=== PATIENT | female | born 1955 | race Caucasian/White ===

== ENCOUNTER 2018-03-13 21:59 | Inpatient (IN) | payer SELFPAY ==
[~2018-03-13] VITALS: Ht 165.1 cm; Wt 48.3 kg
[2018-03-13] MEDS ORDERED: LORazepam 2MG/ML-1ML VIAL ONE (22:21)
[2018-03-13] MEDS ORDERED: LEVETIRACETAM 500 MG/5ML INJ IV ONE (22:22)
[2018-03-13 22:50] LABS: Basophils # (auto) 0.1 uL; Basophils % (auto) 0.4 % (0.0-2.0); Eosinophils # (auto) 0.1 uL; Eosinophils % (auto) 0.3 % (0.0-7.0); Hematocrit 38.9 % (36.0-46.0); Hemoglobin 13.1 g/dL (12.2-16.2); Lymphocytes % (auto) 11.6 % (10.0-50.0); Mean Corpuscular Hgb Conc. 33.7 g/dL (32.0-36.0); Mean Corpuscular Volume 94.8 fL (80.0-100.0); Monocytes # (auto) 0.9 uL; Monocytes % (auto) 5.2 % (0.0-12.0); Neutrophils # (auto) 14.5 uL; Neutrophils % (auto) 82.5 % (37.0-80.0); Platelet Count (auto) 267 10^3/uL (140-450); Red Cell Distribution Width 13.4 % (11.8-14.3); White Blood Cell 17.6 10^3/uL (4.4-10.8)
[2018-03-13] MEDS ORDERED: LEVETIRACETAM INJ 1,000 MG in D5W 5% 100 ML IV ONE (23:00)
[2018-03-13] MEDS ORDERED: LORazepam 2MG/ML-1ML VIAL IV ONE (23:00)
[2018-03-13 23:07] LABS: Albumin 3.7 g/dL (3.4-5.0); Anion Gap 12 (5-15); Blood Urea Nitrogen 5 mg/dL (7-18); Calcium 7.9 mg/dL (8.5-10.1); Carbon Dioxide 21 mmol/L (21-32); Chloride 81 mmol/L (98-107); Glucose 179 mg/dL (74-106); Potassium 4.1 mmol/L (3.5-5.1)
[2018-03-13 23:08] LABS: Acetaminophen < 2.0 ug/mL (10-30)
[2018-03-13 23:10] LABS: INR 0.97 (0.9-1.15); Partial Thromboplastin Time 25.8 sec (23.78-33.04); Prothrombin Time 10.4 sec (9.27-12.13)
[2018-03-13 23:13] LABS: Alanine Aminotransferase 23 U/L (13-56); Alkaline Phosphatase 75 U/L (45-117); Aspartate Aminotransferase 21 U/L (15-37); Bilirubin, Total 0.8 mg/dL (0.2-1.0); GFR African American 112 mL/min; GFR Non-African American 93 mL/min; Total Protein 6.4 g/dL (6.4-8.2)
[2018-03-13 23:22] LABS: Sodium 114 mmol/L (136-145)
[2018-03-13 23:29] LABS: BUN/Creatinine Ratio 7.4
[2018-03-13] MEDS ORDERED: SODIUM CHL 3% 500 ML IV ONE (23:30)
[2018-03-13] MEDS ORDERED: SODIUM CHLORIDE 0.9% 1,000 ML IV ONE (23:30)
[2018-03-14 00:52] LABS: Lactic Acid w/Reflex 3.3 mmol/L (0.4-2.0)
[2018-03-14] MEDS ORDERED: ACETAMINOPHEN 500 MG TAB PO PRN (02:00)
[2018-03-14] MEDS ORDERED: LORazepam 2MG/ML-1ML VIAL IV PRN (02:00)
[2018-03-14] MEDS ORDERED: ONDANSETRON HCL 4 MG/2 ML VIAL IV PRN (02:00)
[2018-03-14 02:29] LABS: Albumin 3.3 g/dL (3.4-5.0); BUN/Creatinine Ratio 10.4; Bilirubin, Total 0.7 mg/dL (0.2-1.0); Calcium 7.5 mg/dL (8.5-10.1); Potassium 3.9 mmol/L (3.5-5.1); Total Protein 5.9 g/dL (6.4-8.2)
[2018-03-14 02:52] LABS: Alcohol, Urine < 3.0 mg/dL (0-5); Amphetamine Screen, Urine NEGATIVE (NEGATIVE); Barbiturate Scree,Urine NEGATIVE (NEGATIVE); Benzodiazephine Screen, Urine NEGATIVE (NEGATIVE); Cannabinoid Screen, Urine NEGATIVE (NEGATIVE); Cocaine Screen, Urine NEGATIVE (NEGATIVE); Opiate Scree,Urine NEGATIVE (NEGATIVE); Phencyclidine Screen, Urine NEGATIVE (NEGATIVE)
[2018-03-14 02:55] LABS: Urine Bacteria NONE SEEN /hpf (None Seen); Urine Blood TRACE /uL (Negative); Urine Specific Gravity 1.007 (1.001-1.035); Urine WBC <1 /hpf (0 - 5)
[2018-03-14] MEDS ORDERED: VANCOMYCIN PER PHARMACY 0 MG IV SCH (03:30)
[2018-03-14] MEDS ORDERED: VANCOMYCIN 1GM/250ML 250 ML IV ONE (04:00)
[2018-03-14] MEDS ORDERED: ALBUTEROL SULF 2.5 MG/0.5ML(0.5%) NEB SOLN NEB ONE (04:30)
[2018-03-14] MEDS ORDERED: IPRATROPIUM BROM 0.5 MG/2.5ML INH SOL NEB ONE (04:30)
[2018-03-14 05:31] LABS: Basophils # (auto) 0 uL; Basophils % (auto) 0.2 % (0.0-2.0); Eosinophils # (auto) 0 uL; Eosinophils % (auto) 0.2 % (0.0-7.0); Hematocrit 37.3 % (36.0-46.0); Hemoglobin 12.7 g/dL (12.2-16.2); Lymphocytes # (auto) 1.6 uL; Lymphocytes % (auto) 10.3 % (10.0-50.0); Mean Corpuscular Hemoglobin 31.8 pg (28.0-32.0); Mean Corpuscular Hgb Conc. 33.9 g/dL (32.0-36.0); Mean Corpuscular Volume 93.8 fL (80.0-100.0); Monocytes # (auto) 1.1 uL; Monocytes % (auto) 7.4 % (0.0-12.0); Neutrophils # (auto) 12.4 uL; Neutrophils % (auto) 81.9 % (37.0-80.0); Platelet Count (auto) 233 10^3/uL (140-450); Red Blood Cells 3.98 10^6/uL (4.0-5.20); Red Cell Distribution Width 13.4 % (11.8-14.3); White Blood Cell 15.1 10^3/uL (4.4-10.8)
[2018-03-14 05:49] LABS: BUN/Creatinine Ratio 8.5; Calcium 7.9 mg/dL (8.5-10.1); Potassium 3.6 mmol/L (3.5-5.1)
[2018-03-14] MEDS: cefTRIAXone 1GM/50ML D5W 50 ML IV SCH (07:10)
[2018-03-14] MEDS: SODIUM CHLORIDE 0.9% 1,000 ML IV SCH ×2 (07:10→13:15)
[2018-03-14] MEDS: LEVETIRACETAM INJ 500 MG in D5W 5% 100 ML IV SCH ×2 (10:30→21:56)
[2018-03-14] MEDS ORDERED: LORazepam 2MG/ML-1ML VIAL ONE (11:25)
[2018-03-14] MEDS ORDERED: ACETAMINOPHEN 325 MG RECT SUPP PR ONE (11:26)
[2018-03-14] MEDS ORDERED: LORazepam 2MG/ML-1ML VIAL IV ONE (11:30)
[2018-03-14] MEDS ORDERED: ACETAMINOPHEN 650 MG RECT SUPP PR ONE (11:30)
[2018-03-14 15:30] VITALS: BP 124/66
[2018-03-14 15:56] VITALS: BP 125/87
[2018-03-14 18:13] LABS: BUN/Creatinine Ratio 5.4; Calcium 7.9 mg/dL (8.5-10.1); Potassium 3.2 mmol/L (3.5-5.1)
[2018-03-14] MEDS ORDERED: SOD CHL IV SCH (18:15)
[2018-03-14] MEDS ORDERED: D5 IV SCH (18:15)
[2018-03-14 19:57] VITALS: BP 144/79
[2018-03-14] MEDS: POTASSIUM CHL 20MEQ/100ML 100 ML IV SCH (22:09)
[2018-03-14] MEDS: VANCOMYCIN 750 MG in D5W 5% 250 ML IV SCH (23:00)
[2018-03-15] VITALS: BP 147/88
[2018-03-15] MEDS: POTASSIUM CHL 20MEQ/100ML 100 ML IV SCH (00:08)
[2018-03-15] MEDS ORDERED: TRAZ-181 PO (03:29)
[2018-03-15] MEDS: cefTRIAXone 1GM/50ML D5W 50 ML IV SCH (04:30)
[2018-03-15 04:41] VITALS: BP 127/51
[2018-03-15 05:05] LABS: Basophils # (auto) 0.1 uL; Basophils % (auto) 0.9 % (0.0-2.0); Eosinophils # (auto) 0.1 uL; Eosinophils % (auto) 0.8 % (0.0-7.0); Hemoglobin 11.8 g/dL (12.2-16.2); Lymphocytes # (auto) 2.4 uL; Lymphocytes % (auto) 24.1 % (10.0-50.0); Mean Corpuscular Hemoglobin 31.9 pg (28.0-32.0); Mean Corpuscular Hgb Conc. 33.6 g/dL (32.0-36.0); Mean Corpuscular Volume 94.9 fL (80.0-100.0); Monocytes # (auto) 0.8 uL; Monocytes % (auto) 7.8 % (0.0-12.0); Neutrophils # (auto) 6.6 uL; Neutrophils % (auto) 66.4 % (37.0-80.0); Platelet Count (auto) 222 10^3/uL (140-450); Red Blood Cells 3.69 10^6/uL (4.0-5.20); Red Cell Distribution Width 14.1 % (11.8-14.3); White Blood Cell 9.9 10^3/uL (4.4-10.8)
[2018-03-15 05:34] LABS: BUN/Creatinine Ratio 8.3; Calcium 7.6 mg/dL (8.5-10.1); Potassium 3.7 mmol/L (3.5-5.1)
[2018-03-15 08:00] VITALS: BP 127/70
[2018-03-15] MEDS: LEVETIRACETAM INJ 500 MG in D5W 5% 100 ML IV SCH ×2 (09:31→21:55)
[2018-03-15] MEDS: NICOTINE 21MG/24 HR TOPICAL PATCH TD SCH (09:44)
[2018-03-15] MEDS ORDERED: D5W 5% 1,000 ML IV ONE ×2 (11:00→12:00)
[2018-03-15 11:48] VITALS: BP 101/56
[2018-03-15 15:23] LABS: Potassium 3.7 mmol/L (3.5-5.1)
[2018-03-15 15:26] LABS: BUN/Creatinine Ratio 7.6; Bilirubin, Total 0.3 mg/dL (0.2-1.0); Total Protein 5.7 g/dL (6.4-8.2)
[2018-03-15 16:00] VITALS: BP 117/77
[2018-03-15] MEDS: VANCOMYCIN 750 MG in D5W 5% 250 ML IV SCH (17:42)
[2018-03-15 18:12] LABS: BUN/Creatinine Ratio 8.5; Potassium 3.7 mmol/L (3.5-5.1)
[2018-03-15 19:49] VITALS: BP 108/69
[2018-03-16] VITALS: BP 123/81
[2018-03-16 04:00] VITALS: BP 115/67
[2018-03-16 05:02] LABS: Basophils # (auto) 0.1 uL; Basophils % (auto) 0.5 % (0.0-2.0); Eosinophils # (auto) 0.2 uL; Eosinophils % (auto) 2.1 % (0.0-7.0); Hematocrit 39.3 % (36.0-46.0); Hemoglobin 13.1 g/dL (12.2-16.2); Lymphocytes # (auto) 2.1 uL; Lymphocytes % (auto) 20.4 % (10.0-50.0); Mean Corpuscular Hemoglobin 31.7 pg (28.0-32.0); Mean Corpuscular Hgb Conc. 33.3 g/dL (32.0-36.0); Mean Corpuscular Volume 95.2 fL (80.0-100.0); Monocytes # (auto) 0.7 uL; Monocytes % (auto) 7.2 % (0.0-12.0); Neutrophils # (auto) 7.2 uL; Neutrophils % (auto) 69.8 % (37.0-80.0); Platelet Count (auto) 243 10^3/uL (140-450); Red Blood Cells 4.12 10^6/uL (4.0-5.20); Red Cell Distribution Width 14.1 % (11.8-14.3); White Blood Cell 10.3 10^3/uL (4.4-10.8)
[2018-03-16 05:25] LABS: BUN/Creatinine Ratio 7.7; Calcium 8.2 mg/dL (8.5-10.1); Phosphorus 3.1 mg/dL (2.5-4.90); Potassium 3.8 mmol/L (3.5-5.1)
[2018-03-16 08:00] VITALS: BP 134/83
[2018-03-16] MEDS: cefTRIAXone 1GM/50ML D5W 50 ML IV SCH (08:57)
[2018-03-16] MEDS: NICOTINE 21MG/24 HR TOPICAL PATCH TD SCH (10:14)
[2018-03-16] MEDS: LEVETIRACETAM INJ 500 MG in D5W 5% 100 ML IV SCH (10:14)
[2018-03-16] MEDS: VANCOMYCIN 750 MG in D5W 5% 250 ML IV SCH ×2 (11:41→22:35)
[2018-03-16 12:00] VITALS: BP 131/70
[2018-03-16] MEDS ORDERED: SODIUM CHLORIDE 0.9% 3,000 ML IV ONE (12:30)
[2018-03-16] MEDS: FUROSEMIDE 40 MG/4 ML VIAL IV SCH ×3 (15:09→21:16)
[2018-03-16 15:59] VITALS: BP 132/89
[2018-03-16 20:00] VITALS: BP 125/70
[2018-03-16] MEDS: LEVETIRACETAM 500 MG TAB PO SCH (21:16)
[2018-03-16] MEDS ORDERED: diphenhdrAMINE HCL 50 MG/1 ML VL ONE (21:46)
[2018-03-16] MEDS ORDERED: diphenhdrAMINE HCL 50 MG/1 ML VL IV SCH (22:30)
[2018-03-17] VITALS (7 sets, daily range): BP systolic 106–123; BP diastolic 63–90
[2018-03-17] MEDS: cefTRIAXone 1GM/50ML D5W 50 ML IV SCH (05:15)
[2018-03-17 05:21] LABS: Basophils # (auto) 0.1 uL; Eosinophils # (auto) 0.3 uL; Eosinophils % (auto) 2.7 % (0.0-7.0); Hematocrit 44.3 % (36.0-46.0); Lymphocytes # (auto) 2.1 uL; Lymphocytes % (auto) 19.2 % (10.0-50.0); Mean Corpuscular Hemoglobin 32.1 pg (28.0-32.0); Mean Corpuscular Hgb Conc. 33.8 g/dL (32.0-36.0); Mean Corpuscular Volume 94.9 fL (80.0-100.0); Monocytes # (auto) 0.8 uL; Monocytes % (auto) 7.2 % (0.0-12.0); Neutrophils # (auto) 7.7 uL; Neutrophils % (auto) 69.9 % (37.0-80.0); Nucleated Red Blood Cells % 0.1 %; Platelet Count (auto) 285 10^3/uL (140-450); Red Blood Cells 4.67 10^6/uL (4.0-5.20); Red Cell Distribution Width 14.2 % (11.8-14.3)
[2018-03-17 05:41] LABS: Albumin 3.5 g/dL (3.4-5.0); Calcium 9.1 mg/dL (8.5-10.1); Potassium 3.5 mmol/L (3.5-5.1)
[2018-03-17 05:45] LABS: BUN/Creatinine Ratio 14.7; Bilirubin, Total 0.4 mg/dL (0.2-1.0)
[2018-03-17] MEDS: LEVETIRACETAM 500 MG TAB PO SCH ×2 (09:56→21:54)
[2018-03-17] MEDS: NICOTINE 21MG/24 HR TOPICAL PATCH TD SCH (10:00)
[2018-03-17] MEDS ORDERED: LORazepam 2MG/ML-1ML VIAL IV PRN (11:15)
[2018-03-17] MEDS ORDERED: THIAMINE 100mg/ml INJ (200mg/2ml VIAL) IM ONE (11:15)
[2018-03-17 11:24] LABS: Cholesterol 189 mg/dL (< 200); Triglycerides 124 mg/dL (< 150)
[2018-03-17 11:26] LABS: HDL Cholesterol 59 mg/dL (40-59); LDL Cholesterol 115 mg/dL (< 100)
[2018-03-17] MEDS: VANCOMYCIN 750 MG in D5W 5% 250 ML IV SCH ×2 (11:34→22:37)
[2018-03-17] MEDS: SODIUM CHLORIDE 0.9% 1,000 ML IV SCH ×2 (17:08→22:55)
[2018-03-17] MEDS ORDERED: diphenhdrAMINE HCL 50 MG/1 ML VL IV ONE (21:00)
[2018-03-17] MEDS: ATORVASTATIN 20 MG TAB PO SCH (21:54)
[2018-03-18 05:00] VITALS: BP 144/87
[2018-03-18] MEDS: cefTRIAXone 1GM/50ML D5W 50 ML IV SCH (05:33)
[2018-03-18 06:34] LABS: Basophils # (auto) 0.1 uL; Basophils % (auto) 0.8 % (0.0-2.0); Eosinophils # (auto) 0.3 uL; Eosinophils % (auto) 3.3 % (0.0-7.0); Lymphocytes # (auto) 1.3 uL; Lymphocytes % (auto) 13.8 % (10.0-50.0); Mean Corpuscular Hemoglobin 31.7 pg (28.0-32.0); Mean Corpuscular Hgb Conc. 33.3 g/dL (32.0-36.0); Mean Corpuscular Volume 95.3 fL (80.0-100.0); Monocytes # (auto) 0.7 uL; Monocytes % (auto) 6.8 % (0.0-12.0); Neutrophils # (auto) 7.2 uL; Neutrophils % (auto) 75.3 % (37.0-80.0); Nucleated Red Blood Cells % 0.1 %; Platelet Count (auto) 260 10^3/uL (140-450); Red Blood Cells 4.09 10^6/uL (4.0-5.20); Red Cell Distribution Width 13.9 % (11.8-14.3); White Blood Cell 9.6 10^3/uL (4.4-10.8)
[2018-03-18] MEDS: SODIUM CHLORIDE 0.9% 1,000 ML IV SCH ×3 (06:35→18:55)
[2018-03-18 06:50] LABS: BUN/Creatinine Ratio 21.8; Calcium 8.6 mg/dL (8.5-10.1); Potassium 3.7 mmol/L (3.5-5.1)
[2018-03-18 08:39] VITALS: BP 134/74
[2018-03-18] MEDS: ASPirin-EC 81 mg tab PO SCH (09:44)
[2018-03-18] MEDS: THIAMINE HCL 100 MG TAB PO SCH (09:45)
[2018-03-18] MEDS: LEVETIRACETAM 500 MG TAB PO SCH ×2 (09:45→22:00)
[2018-03-18] MEDS: NICOTINE 21MG/24 HR TOPICAL PATCH TD SCH (09:46)
[2018-03-18] MEDS: VANCOMYCIN 750 MG in D5W 5% 250 ML IV SCH (11:00)
[2018-03-18 13:00] VITALS: BP 128/62
[2018-03-18 17:00] VITALS: BP 105/70
[2018-03-18] MEDS: ATORVASTATIN 20 MG TAB PO SCH (21:58)
[2018-03-18 22:57] VITALS: BP 117/76
[2018-03-19] MEDS: SODIUM CHLORIDE 0.9% 1,000 ML IV SCH ×2 (01:35→08:15)
[2018-03-19 04:53] VITALS: BP 117/69
[2018-03-19] MEDS: cefTRIAXone 1GM/50ML D5W 50 ML IV SCH (05:19)
[2018-03-19 07:32] LABS: Basophils # (auto) 0.1 uL; Basophils % (auto) 1.2 % (0.0-2.0); Eosinophils # (auto) 0.3 uL; Eosinophils % (auto) 3.9 % (0.0-7.0); Hematocrit 37.9 % (36.0-46.0); Hemoglobin 12.8 g/dL (12.2-16.2); Lymphocytes # (auto) 1.3 uL; Lymphocytes % (auto) 16.7 % (10.0-50.0); Mean Corpuscular Hemoglobin 32.2 pg (28.0-32.0); Mean Corpuscular Hgb Conc. 33.7 g/dL (32.0-36.0); Mean Corpuscular Volume 95.3 fL (80.0-100.0); Monocytes # (auto) 0.5 uL; Monocytes % (auto) 6.6 % (0.0-12.0); Neutrophils # (auto) 5.5 uL; Neutrophils % (auto) 71.6 % (37.0-80.0); Platelet Count (auto) 268 10^3/uL (140-450); Red Blood Cells 3.98 10^6/uL (4.0-5.20); Red Cell Distribution Width 14.1 % (11.8-14.3); White Blood Cell 7.6 10^3/uL (4.4-10.8)
[2018-03-19 07:42] LABS: BUN/Creatinine Ratio 14.5; Calcium 8.7 mg/dL (8.5-10.1); Phosphorus 3.5 mg/dL (2.5-4.90); Potassium 4.3 mmol/L (3.5-5.1)
[2018-03-19 09:00] VITALS: BP 124/75
[2018-03-19] MEDS: NICOTINE 21MG/24 HR TOPICAL PATCH TD SCH (09:22)
[2018-03-19] MEDS: THIAMINE HCL 100 MG TAB PO SCH (09:22)
[2018-03-19] MEDS: ASPirin-EC 81 mg tab PO SCH (09:22)
[2018-03-19] MEDS: LEVETIRACETAM 500 MG TAB PO SCH (10:00)
[2018-03-19 12:38] VITALS: BP 139/87
[2018-03-19 12:40] VITALS: BP 139/87
== END 2018-03-19 14:20 | disposition home or self-care (01) | DRG 101 ==
LOC: ER 21:59 → OVERFLOW 03-14 02:05 → DOU IN ICU 03-14 15:21 → WEST WING 03-17 12:59
PROVIDERS: ADMIT Nurse Practitioner Family; ATTEND Family Medicine
DX: G40.909 Epilepsy, unspecified, not intractable, without status epilepticus (principal); E87.0 Hyperosmolality and hypernatremia; M62.82 Rhabdomyolysis; R65.10 Systemic inflammatory response syndrome (SIRS) of non-infectious origin without acute organ dysfunction; E87.1 Hypo-osmolality and hyponatremia; F17.200 Nicotine dependence, unspecified, uncomplicated; E87.6 Hypokalemia; I95.9 Hypotension, unspecified; R00.0 Tachycardia, unspecified; F32.9 Major depressive disorder, single episode, unspecified; Z82.49 Family history of ischemic heart disease and other diseases of the circulatory system; Z86.73 Personal history of transient ischemic attack (TIA), and cerebral infarction without residual deficits; Z83.3 Family history of diabetes mellitus; Z90.710 Acquired absence of both cervix and uterus; Z88.2 Allergy status to sulfonamides; Z90.49 Acquired absence of other specified parts of digestive tract
CPT/HCPCS: 36415; 70450; 70551; 71045; 80048; 80053; 80061; 80202; 80307; 80320; 80329; 81001; 82533; 82550; 83605; 83880; 83935; 84100; 84295; 84300; 84443; 84484; 85025; 85379; 85610; 85730; 87040; 87081; 87086; 93306; 93886; 94640; 94761; 95819; 96361; 96365; 96367; A6257; G0378; J0696; J3480; J7060

== ENCOUNTER 2020-08-07 15:58 | Inpatient (IN) | payer OTHER ==
[~2020-08-07] VITALS: Ht 160 cm; Wt 40.8 kg
[~2020-08-07 15:58] MED LIST: TRAZ-181 PO
[2020-08-07 17:16] LABS: Urine WBC None Seen /hpf (0 - 5)
[2020-08-07 17:23] LABS: Basophils # (auto) 0.1 10 ^3/uL (0-0.2); Basophils % (auto) 0.2 % (0.0-2.0); Eosinophils # (auto) 0 10 ^3/uL (0-0.8); Hematocrit 39.3 % (36.0-46.0); Hemoglobin 13.7 g/dL (12.2-16.2); Lymphocytes # (auto) 1.3 10 ^3/uL (0.4-5.4); Mean Corpuscular Hemoglobin 32.5 pg (28.0-32.0); Mean Corpuscular Hgb Conc. 34.8 g/dL (32.0-36.0); Mean Corpuscular Volume 93.3 fL (80.0-100.0); Monocytes # (auto) 1.1 10 ^3/uL (0-1.3); Monocytes % (auto) 5.2 % (0.0-12.0); Neutrophils # (auto) 18.7 10 ^3/uL (1.6-8.6); Neutrophils % (auto) 88.6 % (37.0-80.0); Nucleated Red Blood Cells % 0.1 %; Platelet Count (auto) 286 10^3/uL (140-450); Red Blood Cells 4.21 10^6/uL (4.0-5.20); Red Cell Distribution Width 13.9 % (11.8-14.3); White Blood Cell 21.2 10^3/uL (4.4-10.8)
[2020-08-07 17:23] LABS: Urine Bacteria NONE SEEN /hpf (None Seen); Urine Blood Negative /uL (Negative); Urine Specific Gravity 1.001 (1.001-1.035)
[2020-08-07 17:24] LABS: Anion Gap 11 (5-15); Blood Urea Nitrogen 6 mg/dL (7-18); Calcium 8.9 mg/dL (8.5-10.1); Carbon Dioxide 22 mmol/L (21-32); Chloride 91 mmol/L (98-107); Glucose 100 mg/dL (74-106); Magnesium 1.7 mg/dL (1.6-2.6); Sodium 124 mmol/L (136-145)
[2020-08-07 17:30] LABS: Alanine Aminotransferase 50 U/L (13-56); Alkaline Phosphatase 82 U/L (45-117); Aspartate Aminotransferase 58 U/L (15-37); BUN/Creatinine Ratio 11.8; Bilirubin, Total 0.8 mg/dL (0.2-1.0); GFR African American 156 mL/min; GFR Non-African American 129 mL/min
[2020-08-07 17:46] LABS: Alcohol, Urine < 3.0 mg/dL (0-10); Amphetamine Screen, Urine NEGATIVE (NEGATIVE); Barbiturate Scree,Urine NEGATIVE (NEGATIVE); Benzodiazephine Screen, Urine NEGATIVE (NEGATIVE); Cannabinoid Screen, Urine NEGATIVE (NEGATIVE); Cocaine Screen, Urine NEGATIVE (NEGATIVE); Opiate Scree,Urine NEGATIVE (NEGATIVE); Phencyclidine Screen, Urine NEGATIVE (NEGATIVE)
[2020-08-07] MEDS ORDERED: VANCOMYCIN 1GM/250ML 250 ML IV ONE (18:30)
[2020-08-07] MEDS ORDERED: ASPirin 81 mg TAB PO ONE (18:30)
[2020-08-07] MEDS ORDERED: cefTRIAXone 1GM/50ML D5W 50 ML IV ONE (18:30)
[2020-08-07] MEDS ORDERED: ATORVASTATIN 20 MG TAB PO ONE (18:30)
[2020-08-07] MEDS ORDERED: ASPI-543 PO (18:37)
[2020-08-07 19:25] LABS: INR 1.03 (0.9-1.15); Partial Thromboplastin Time 26.2 sec (23.0-31.2)
[2020-08-07 19:30] LABS: Cholesterol 192 mg/dL (< 200); Triglycerides 80 mg/dL (< 150)
[2020-08-07 19:33] LABS: HDL Cholesterol 77 mg/dL (40-59); LDL Cholesterol 97 mg/dL (< 100)
[2020-08-07] MEDS ORDERED: ALBUTEROL SULF 2.5 MG/0.5ML(0.5%) NEB SOLN NEB PRN (21:15)
[2020-08-07] MEDS ORDERED: SODIUM CHLORIDE 0.9% 1,000 ML IV ONE (21:15)
[2020-08-07] MEDS ORDERED: VANCOMYCIN PER PHARMACY 0 MG IV SCH (21:15)
[2020-08-07 22:39] VITALS: BP 129/65
[2020-08-08] MEDS ORDERED: traZODone HCL 50 MG TAB PO ONE (01:00)
[2020-08-08] MEDS: VANCOMYCIN 1GM/250ML 250 ML IV SCH ×2 (06:39→19:00)
[2020-08-08] MEDS ORDERED: LORazepam 2MG/ML-1ML VIAL IV PRN (08:45)
[2020-08-08 09:41] LABS: Albumin 2.6 g/dL (3.4-5.0); BUN/Creatinine Ratio 14.7; Calcium 7.5 mg/dL (8.5-10.1); Potassium 4.2 mmol/L (3.5-5.1)
[2020-08-08 09:50] LABS: Bilirubin, Total 0.4 mg/dL (0.2-1.0); Total Protein 4.9 g/dL (6.4-8.2)
[2020-08-08] MEDS ORDERED: cefTRIAXone 1GM/50ML D5W 50 ML IV SCH (10:00)
[2020-08-08 11:35] LABS: Basophils # (auto) 0 10 ^3/uL (0-0.2); Basophils % (auto) 0.5 % (0.0-2.0); Eosinophils # (auto) 0 10 ^3/uL (0-0.8); Eosinophils % (auto) 0.5 % (0.0-7.0); Hematocrit 34.9 % (36.0-46.0); Hemoglobin 11.7 g/dL (12.2-16.2); Lymphocytes # (auto) 1.9 10 ^3/uL (0.4-5.4); Lymphocytes % (auto) 21.2 % (10.0-50.0); Mean Corpuscular Hgb Conc. 33.5 g/dL (32.0-36.0); Mean Corpuscular Volume 95.5 fL (80.0-100.0); Monocytes # (auto) 0.6 10 ^3/uL (0-1.3); Neutrophils # (auto) 6.5 10 ^3/uL (1.6-8.6); Neutrophils % (auto) 70.8 % (37.0-80.0); Platelet Count (auto) 263 10^3/uL (140-450); Red Blood Cells 3.66 10^6/uL (4.0-5.20); Red Cell Distribution Width 14.1 % (11.8-14.3); White Blood Cell 9.1 10^3/uL (4.4-10.8)
[2020-08-08 15:55] VITALS: BP 122/69
[2020-08-08 16:00] VITALS: BP 121/86
[2020-08-08] MEDS ORDERED: traZODone HCL 50 MG TAB PO SCH (22:00)
[2020-08-08] MEDS ORDERED: ATORVASTATIN 20 MG TAB PO SCH (22:00)
== END 2020-08-08 19:25 | disposition home or self-care (01) | DRG 640 ==
LOC: ER 15:58 → TELE 21:02 → TELE-EAST 08-08 11:39
PROVIDERS: ADMIT Internal Medicine; ATTEND Internal Medicine
DX: E87.1 Hypo-osmolality and hyponatremia (principal); G93.41 Metabolic encephalopathy; R64 Cachexia; Z68.1 Body mass index [BMI] 19.9 or less, adult; Z20.822 Contact with and (suspected) exposure to COVID-19; J44.9 Chronic obstructive pulmonary disease, unspecified; R54 Age-related physical debility; F32.9 Major depressive disorder, single episode, unspecified; F17.210 Nicotine dependence, cigarettes, uncomplicated; Z79.82 Long term (current) use of aspirin; Z82.49 Family history of ischemic heart disease and other diseases of the circulatory system; Z79.899 Other long term (current) drug therapy; Z83.3 Family history of diabetes mellitus; Z86.73 Personal history of transient ischemic attack (TIA), and cerebral infarction without residual deficits; Z90.710 Acquired absence of both cervix and uterus; Z90.49 Acquired absence of other specified parts of digestive tract; Z88.2 Allergy status to sulfonamides
CPT/HCPCS: 36415; 70450; 70551; 71045; 80053; 80061; 80307; 80320; 81001; 82140; 83735; 84484; 85025; 85610; 85730; 87040; 87426; 93005; 93886; 96365; 96366; 96368; 96375; 99291; G0378; J0696

== ENCOUNTER 2021-05-21 18:49 | Inpatient (IN) | payer OTHER ==
[~2021-05-21] VITALS: Ht 160 cm; Wt 48.2 kg
[~2021-05-21 18:49] MED LIST changes: +ASPI-543 PO
[2021-05-21 19:53] LABS: Basophils # (auto) 0.1 10 ^3/uL (0-0.2); Basophils % (auto) 0.9 % (0.0-2.0); Eosinophils # (auto) 0.1 10 ^3/uL (0-0.8); Eosinophils % (auto) 0.4 % (0.0-7.0); Hematocrit 36.8 % (36.0-46.0); Hemoglobin 12.3 g/dL (12.2-16.2); Lymphocytes # (auto) 1.5 10 ^3/uL (0.4-5.4); Lymphocytes % (auto) 10.5 % (10.0-50.0); Mean Corpuscular Hemoglobin 31.2 pg (28.0-32.0); Mean Corpuscular Hgb Conc. 33.4 g/dL (32.0-36.0); Mean Corpuscular Volume 93.2 fL (80.0-100.0); Monocytes # (auto) 0.9 10 ^3/uL (0-1.3); Monocytes % (auto) 6.1 % (0.0-12.0); Neutrophils # (auto) 11.4 10 ^3/uL (1.6-8.6); Neutrophils % (auto) 82.1 % (37.0-80.0); Red Blood Cells 3.95 10^6/uL (4.0-5.20); Red Cell Distribution Width 13.7 % (11.8-14.3); White Blood Cell 13.9 10^3/uL (4.4-10.8)
[2021-05-21 20:09] LABS: Calcium 9.3 mg/dL (8.5-10.1); Potassium 3.7 mmol/L (3.5-5.1)
[2021-05-21 20:13] LABS: BUN/Creatinine Ratio 9.6
[2021-05-21 20:15] LABS: Bilirubin, Total 0.5 mg/dL (0.2-1.0)
[2021-05-21 22:37] LABS: Urine Bacteria NONE SEEN /hpf (None Seen); Urine Blood Negative /uL (Negative); Urine WBC <1 /hpf (0 - 5)
[2021-05-21] MEDS ORDERED: IOHEXOL 300 MG/ML 100ML BOTTLE IJ ONE ×2 (23:39→23:56)
[2021-05-21] MEDS ORDERED: OMNIPAQUE ORAL SOLN 500ml 12mg/ml PO ONE (23:56)
[2021-05-22] MEDS ORDERED: levoFLOXacin 500MG 100 ML IV ONE
[2021-05-22] MEDS ORDERED: metroNIDAZOLE 500MG/100ML 100 ML IV ONE
[2021-05-22 00:08] LABS: Basophils # (auto) 0.1 10 ^3/uL (0-0.2); Basophils % (auto) 0.7 % (0.0-2.0); Eosinophils # (auto) 0.1 10 ^3/uL (0-0.8); Eosinophils % (auto) 0.5 % (0.0-7.0); Hematocrit 38.6 % (36.0-46.0); Hemoglobin 13.1 g/dL (12.2-16.2); Lymphocytes # (auto) 1.9 10 ^3/uL (0.4-5.4); Lymphocytes % (auto) 12.4 % (10.0-50.0); Mean Corpuscular Hemoglobin 31.8 pg (28.0-32.0); Mean Corpuscular Volume 93.6 fL (80.0-100.0); Monocytes # (auto) 1.2 10 ^3/uL (0-1.3); Monocytes % (auto) 7.8 % (0.0-12.0); Neutrophils % (auto) 78.6 % (37.0-80.0); Red Blood Cells 4.12 10^6/uL (4.0-5.20); Red Cell Distribution Width 13.6 % (11.8-14.3); White Blood Cell 15.3 10^3/uL (4.4-10.8)
[2021-05-22 00:14] LABS: Albumin 3.2 g/dL (3.4-5.0); BUN/Creatinine Ratio 8.8; Calcium 9.2 mg/dL (8.5-10.1); Potassium 3.8 mmol/L (3.5-5.1)
[2021-05-22 00:17] LABS: Bilirubin, Total 0.6 mg/dL (0.2-1.0); Total Protein 6.5 g/dL (6.4-8.2)
[2021-05-22] MEDS ORDERED: ONDANSETRON HCL 4 MG/2 ML VIAL IV ONE (01:45)
[2021-05-22] MEDS ORDERED: MORPHINE SULFATE 4 MG/ML SYR/VIAL IV ONE (01:45)
[2021-05-22] MEDS ORDERED: ONDANSETRON HCL 4 MG/2 ML VIAL IV PRN (06:00)
[2021-05-22] MEDS ORDERED: NITROGLYCERIN 0.4 MG SL TAB SL PRN (06:00)
[2021-05-22] MEDS ORDERED: MORPHINE SULFATE INJECTION 2 MG/ML SYRG IV PRN (06:00)
[2021-05-22] MEDS ORDERED: ALBUTEROL SULF 2.5 MG/0.5ML(0.5%) NEB SOLN NEB PRN (06:00)
[2021-05-22] MEDS: LACTATED RINGER'S 1,000 ML IV SCH ×2 (06:30→16:54)
[2021-05-22] MEDS: PIPERACILLIN-TAZOB 3.375GM 100 ML IV SCH ×3 (07:39→17:57)
[2021-05-22] MEDS: MORPHINE SULFATE 4 MG/ML SYR/VIAL IV PRN ×3 (07:40→16:54)
[2021-05-22 08:04] LABS: INR 1.09 (0.9-1.15)
[2021-05-22] MEDS ORDERED: LIDOCAINE 2%HCL (LOCAL ANESTH.) INJ 20ML MDV ONE (08:54)
[2021-05-22 09:44] VITALS: BP 99/66
[2021-05-22] MEDS ORDERED: IPRATROPIUM BROM 0.5 MG/2.5ML INH SOL NEB PRN (10:00)
[2021-05-22 10:13] VITALS: BP 123/66
[2021-05-22] MEDS ORDERED: MIDAZOLAM HCL 2MG/2ML 2ml VIAL (1mg/ml) ONE (10:20)
[2021-05-22] MEDS ORDERED: GASTROGRAFIN 120 ML SOL ONE (10:20)
[2021-05-22] MEDS ORDERED: fentaNYL CITRATE 100 MCG/2 ML VL ONE (10:21)
[2021-05-22 10:27] VITALS: BP 123/66
[2021-05-22 13:00] VITALS: BP 109/57
[2021-05-22 15:58] LABS: Basophils # (auto) 0.1 10 ^3/uL (0-0.2); Basophils % (auto) 0.5 % (0.0-2.0); Eosinophils # (auto) 0 10 ^3/uL (0-0.8); Hematocrit 35.6 % (36.0-46.0); Hemoglobin 11.8 g/dL (12.2-16.2); Lymphocytes % (auto) 6.5 % (10.0-50.0); Mean Corpuscular Hemoglobin 30.8 pg (28.0-32.0); Mean Corpuscular Hgb Conc. 33.1 g/dL (32.0-36.0); Mean Corpuscular Volume 93.3 fL (80.0-100.0); Monocytes # (auto) 1.2 10 ^3/uL (0-1.3); Monocytes % (auto) 7.9 % (0.0-12.0); Neutrophils # (auto) 12.5 10 ^3/uL (1.6-8.6); Neutrophils % (auto) 85.1 % (37.0-80.0); Nucleated Red Blood Cells % 0.1 %; Red Blood Cells 3.82 10^6/uL (4.0-5.20); Red Cell Distribution Width 13.7 % (11.8-14.3); White Blood Cell 14.7 10^3/uL (4.4-10.8)
[2021-05-22 16:19] LABS: Albumin 2.5 g/dL (3.4-5.0); BUN/Creatinine Ratio 13.3; Calcium 8.8 mg/dL (8.5-10.1); Potassium 3.7 mmol/L (3.5-5.1)
[2021-05-22 16:22] LABS: Bilirubin, Total 0.6 mg/dL (0.2-1.0); Total Protein 6.1 g/dL (6.4-8.2)
[2021-05-22 17:00] VITALS: BP 125/63
[2021-05-22 22:00] VITALS: BP 123/71
[2021-05-23] MEDS: PIPERACILLIN-TAZOB 3.375GM 100 ML IV SCH ×4 (00:31→18:35)
[2021-05-23] MEDS: MORPHINE SULFATE 4 MG/ML SYR/VIAL IV PRN ×3 (00:32→17:43)
[2021-05-23] MEDS: LACTATED RINGER'S 1,000 ML IV SCH ×2 (02:09→12:52)
[2021-05-23 05:00] VITALS: BP 135/64
[2021-05-23 06:29] LABS: Basophils # (auto) 0.1 10 ^3/uL (0-0.2); Basophils % (auto) 0.5 % (0.0-2.0); Eosinophils # (auto) 0 10 ^3/uL (0-0.8); Eosinophils % (auto) 0.4 % (0.0-7.0); Hematocrit 34.3 % (36.0-46.0); Hemoglobin 11.9 g/dL (12.2-16.2); Lymphocytes # (auto) 1.2 10 ^3/uL (0.4-5.4); Lymphocytes % (auto) 9.3 % (10.0-50.0); Mean Corpuscular Hemoglobin 31.9 pg (28.0-32.0); Mean Corpuscular Hgb Conc. 34.6 g/dL (32.0-36.0); Monocytes # (auto) 0.9 10 ^3/uL (0-1.3); Monocytes % (auto) 7.4 % (0.0-12.0); Neutrophils # (auto) 10.5 10 ^3/uL (1.6-8.6); Neutrophils % (auto) 82.4 % (37.0-80.0); Nucleated Red Blood Cells % 0.1 %; Red Blood Cells 3.72 10^6/uL (4.0-5.20); Red Cell Distribution Width 13.5 % (11.8-14.3); White Blood Cell 12.7 10^3/uL (4.4-10.8)
[2021-05-23 06:51] LABS: Albumin 2.5 g/dL (3.4-5.0); BUN/Creatinine Ratio 15.6; Calcium 8.7 mg/dL (8.5-10.1); Potassium 3.8 mmol/L (3.5-5.1)
[2021-05-23 06:54] LABS: Bilirubin, Total 0.6 mg/dL (0.2-1.0)
[2021-05-23 09:00] VITALS: BP 129/73
[2021-05-23] MEDS ORDERED: TPN PER PHARMACY 0 ML IV SCH (09:45)
[2021-05-23 10:06] LABS: Magnesium 2.2 mg/dL (1.6-2.6); Phosphorus 3.6 mg/dL (2.5-4.90)
[2021-05-23 10:11] LABS: Pre Albumin 7.9 mg/dL (20.0-40.0)
[2021-05-23] MEDS ORDERED: LIDOCAINE 1% (LOCAL ANESTH.) PF 5ml SDV ID ONE (10:45)
[2021-05-23 13:00] VITALS: BP 117/72
[2021-05-23] MEDS ORDERED: HYDR-4902 PO (13:14)
[2021-05-23] MEDS ORDERED: INVANZ IM (13:14)
[2021-05-23] MEDS ORDERED: ERTAPENEM SOD INJ 1 GM in SODIUM CHL 0.9% 50 ML IV ONE (13:15)
[2021-05-23 17:00] VITALS: BP 135/77
[2021-05-23] MEDS ORDERED: TPN PER PHARMACY IV NR ×7 (20:00)
[2021-05-23] MEDS ORDERED: LACTATED RINGER'S 1,000 ML IV SCH (20:00)
[2021-05-23 22:00] VITALS: BP 129/64
[2021-05-23] MEDS: SODIUM CHLOR 0.9% PF (SALINE LOCK) 10ML VIAL/SYR IV SCH (22:33)
[2021-05-24] MEDS ORDERED: DEXTROSE (50%) 50ML SYRG IV SCH
[2021-05-24] MEDS: PIPERACILLIN-TAZOB 3.375GM 100 ML IV SCH ×3 (00:19→16:44)
[2021-05-24] MEDS: MORPHINE SULFATE 4 MG/ML SYR/VIAL IV PRN ×3 (00:21→22:02)
[2021-05-24] MEDS: ACCU-CHEK COMFORT CURVE STRIP VI SCH ×3 (00:58→18:38)
[2021-05-24 05:00] VITALS: BP_SYST 123; BP_SYST 94; BP_DIAS 52; BP_DIAS 71
[2021-05-24] MEDS: InsuLIN REG 1unit/0.01ml Soln (100units/ml) SC SCH ×4 (06:00→18:00)
[2021-05-24 06:29] LABS: Potassium 3.3 mmol/L (3.5-5.1)
[2021-05-24 06:34] LABS: Albumin 2.3 g/dL (3.4-5.0); BUN/Creatinine Ratio 14.6; Calcium 8.4 mg/dL (8.5-10.1)
[2021-05-24 06:37] LABS: Bilirubin, Total 0.4 mg/dL (0.2-1.0); Magnesium 2.3 mg/dL (1.6-2.6); Phosphorus 2.7 mg/dL (2.5-4.90)
[2021-05-24] MEDS ORDERED: POTASSIUM CHL 10MEQ/50ML 50 ML IV SCH (08:30)
[2021-05-24] MEDS ORDERED: POTASSIUM PHOSPHATE 22 MEQ in SODIUM CHL 0.9% 100 ML IV ONE (08:45)
[2021-05-24 08:54] VITALS: BP 121/69
[2021-05-24] MEDS: SODIUM CHLOR 0.9% PF (SALINE LOCK) 10ML VIAL/SYR IV SCH ×2 (11:39→23:08)
[2021-05-24] MEDS: POTASSIUM CHL 10MEQ/50ML 50 ML IV SCH ×4 (11:40→14:49)
[2021-05-24 12:27] VITALS: BP 148/86
[2021-05-24 16:43] VITALS: BP 129/80
[2021-05-24 17:39] VITALS: BP 130/62
[2021-05-24] MEDS ORDERED: TPN PER PHARMACY IV NR ×8 (20:00)
[2021-05-24 22:32] VITALS: BP 98/61
[2021-05-25] MEDS: InsuLIN REG 1unit/0.01ml Soln (100units/ml) SC SCH
[2021-05-25] MEDS: PIPERACILLIN-TAZOB 3.375GM 100 ML IV SCH ×2 (00:11→00:13)
[2021-05-25] MEDS: ACCU-CHEK COMFORT CURVE STRIP VI SCH ×2 (00:11→00:13)
== END 2021-05-25 00:54 | DRG 392 ==
LOC: ER 18:50 → TELE 05-22 05:50 → TELE-WESTW 05-22 09:07
PROVIDERS: ADMIT Hospitalist; ATTEND Internal Medicine
PROC: 0W9J3ZZ Drainage of Pelvic Cavity, Percutaneous Approach (ICD-10-PCS; 2021-05-22)
PROC: 02HV33Z Insertion of Infusion Device into Superior Vena Cava, Percutaneous Approach (ICD-10-PCS; principal; 2021-05-23)
PROC: B548ZZA Ultrasonography of Superior Vena Cava, Guidance (ICD-10-PCS; 2021-05-23)
DX: K57.20 Diverticulitis of large intestine with perforation and abscess without bleeding (principal); J44.9 Chronic obstructive pulmonary disease, unspecified; F32.A Depression, unspecified; Z20.822 Contact with and (suspected) exposure to COVID-19; Z90.49 Acquired absence of other specified parts of digestive tract; Z88.2 Allergy status to sulfonamides
CPT/HCPCS: 10005; 36415; 36569; 71045; 72192; 74177; 77012; 80053; 81001; 82040; 82378; 82962; 83605; 83735; 84100; 84478; 84484; 85025; 85610; 87040; 87070; 87205; 93005; 96365; 96367; C1729; G0378; J1335; J1956; J2250; J2405; J2543; J3490